=== PATIENT | male | born 1965 | race Caucasian/White ===

== ENCOUNTER 2022-01-20 10:58 | Emergency (ER) | payer SELFPAY ==
[2022-01-20] MEDS ORDERED: Bacitracin/Neomycin/Polymyxin B Oint 0.9 GM U/D Packet TOP ONE (11:28)
[2022-01-20] MEDS ORDERED: Lidocaine 2% 5 ML SDV INJECT ONE (11:28)
[2022-01-20] MEDS ORDERED: Diphtheria,Pertussis(Acell),Tetanus Vaccine 0.5 ML Syringe IM ONE (11:32)
== END 2022-01-20 12:30 | disposition home or self-care (01) ==
LOC: KA.ED 10:58
DX: S61.012A Laceration without foreign body of left thumb without damage to nail, initial encounter (principal); Z23 Encounter for immunization; W26.8XXA Contact with other sharp object(s), not elsewhere classified, initial encounter
CPT/HCPCS: 12001; 73140-FA; 90471; 90715; 99283; 99283-25